=== PATIENT | male | born 1995 | race Caucasian/White ===

== ENCOUNTER 2023-09-18 09:34 | Emergency (ER) | payer MEDICAID, OTHER ==
[~2023-09-18] VITALS: Ht 172.7 cm; Wt 114.9 kg
[2023-09-18 10:11] VITALS: BP 130/77; PULSE 64; RESP 18; TEMP 97.8; O2SAT 99
[2023-09-18] MEDS ORDERED: IBUP-1456 PO (10:39)
== END 2023-09-18 10:42 | disposition home or self-care (01) ==
LOC: ER 09:34
DX: M54.59 Other low back pain (principal); G89.29 Other chronic pain; Z79.899 Other long term (current) drug therapy
CPT/HCPCS: 72100

== ENCOUNTER 2023-10-15 12:54 | Emergency (ER) | payer MEDICAID ==
[~2023-10-15] VITALS: Ht 170.2 cm; Wt 111.0 kg
[~2023-10-15 12:54] MED LIST: IBUP-1456 PO
[2023-10-15 13:28] LABS: Basophils # (auto) 0.1 10 ^3/uL (0-0.2); Basophils % (auto) 0.8 % (0.0-2.0); Eosinophils # (auto) 0.3 10 ^3/uL (0-0.8); Eosinophils % (auto) 3.4 % (0.0-7.0); Hemoglobin 15.4 g/dL (13.5-17.5); Lymphocytes % (auto) 21.8 % (10.0-50.0); Mean Corpuscular Hemoglobin 29.5 pg (28.0-32.0); Mean Corpuscular Hgb Conc. 34.3 g/dL (32.0-36.0); Mean Corpuscular Volume 86.1 fL (80.0-100.0); Monocytes # (auto) 0.7 10 ^3/uL (0-1.3); Neutrophils # (auto) 6.1 10 ^3/uL (1.6-8.6); Nucleated Red Blood Cells % 0.1 %; Red Blood Cells 5.23 10^6/uL (4.5-5.90); Red Cell Distribution Width 13.9 % (11.8-14.3); White Blood Cell 9.2 10^3/uL (4.4-10.8)
[2023-10-15 13:33] LABS: Urine Bacteria None Seen /hpf (None Seen)
[2023-10-15 13:43] LABS: Urine Blood Negative /uL (Negative); Urine Clarity Clear (Clear); Urine Color Yellow (Yellow); Urine Mucus FEW (None Seen); Urine Protein, UAD 2+ (Negative); Urine Specific Gravity 1.025 (1.001-1.035); Urine Urobilinogen Normal (Negative); Urine WBC 1 /hpf (0 - 3); Urine pH 6.5 (5.0-9.0)
[2023-10-15 13:48] LABS: Alanine Aminotransferase 39 U/L (7-40); Alkaline Phosphatase 79 U/L (46-116)
[2023-10-15 13:49] LABS: Albumin 4.1 g/dL (3.2-4.8); Anion Gap 3 (5-15); Aspartate Aminotransferase 21 U/L (13-40); BUN/Creatinine Ratio 13.3 (10.0-20.0); Bilirubin, Total 0.7 mg/dL (0.2-1.0); Blood Urea Nitrogen 13 mg/dL (9-23); Calcium 9.7 mg/dL (8.5-10.1); Carbon Dioxide 30 mmol/L (20-30); Chloride 108 mmol/L (98-107); Glucose 93 mg/dL (74-106); Potassium 4.6 mmol/L (3.5-5.1); Sodium 141 mmol/L (136-145); Total Protein 6.4 g/dL (5.7-8.2)
[2023-10-15 13:56] LABS: Amphetamine Screen, Urine Neg (NEGATIVE)
[2023-10-15 13:57] LABS: Barbiturate Scree,Urine Neg (NEGATIVE); Benzodiazephine Screen, Urine Neg (NEGATIVE); Cannabinoid Screen, Urine Neg (NEGATIVE); Cocaine Screen, Urine Neg (NEGATIVE); Opiate Scree,Urine Neg (NEGATIVE); Phencyclidine Screen, Urine Neg (NEGATIVE)
[2023-10-15 16:47] VITALS: BP 132/74; PULSE 52; RESP 20; TEMP 98.1; O2SAT 96
== END 2023-10-15 16:45 | disposition home or self-care (01) ==
LOC: ER 12:54
DX: R07.89 Other chest pain (principal); Z79.899 Other long term (current) drug therapy
CPT/HCPCS: 36415; 71046; 80053; 80307; 81001; 84443; 84484; 85025; 85379; 93005

== ENCOUNTER 2024-02-05 16:50 | Emergency (ER) | payer MEDICAID ==
[~2024-02-05] VITALS: Ht 170.2 cm; Wt 106.4 kg
[2024-02-05] MEDS: HYDROcodone-ACET 5/325MG TAB PO ONE (18:07)
[2024-02-05 18:08] LABS: Basophils # (auto) 0.1 10 ^3/uL (0-0.2); Basophils % (auto) 0.7 % (0.0-2.0); Eosinophils # (auto) 0.6 10 ^3/uL (0-0.8); Eosinophils % (auto) 4.6 % (0.0-7.0); Hematocrit 48.1 % (41.0-53.0); Hemoglobin 16.6 g/dL (13.5-17.5); Lymphocytes % (auto) 16.3 % (10.0-50.0); Mean Corpuscular Hemoglobin 29.5 pg (28.0-32.0); Mean Corpuscular Hgb Conc. 34.5 g/dL (32.0-36.0); Mean Corpuscular Volume 85.5 fL (80.0-100.0); Monocytes # (auto) 1.1 10 ^3/uL (0-1.3); Monocytes % (auto) 9.1 % (0.0-12.0); Neutrophils # (auto) 8.7 10 ^3/uL (1.6-8.6); Neutrophils % (auto) 69.3 % (37.0-80.0); Nucleated Red Blood Cells % 0.2 %; Platelet Count (auto) 229 10^3/uL (140-450); Red Blood Cells 5.63 10^6/uL (4.5-5.90); Red Cell Distribution Width 13.2 % (11.8-14.3); White Blood Cell 12.6 10^3/uL (4.4-10.8)
[2024-02-05 18:11] VITALS: BP 121/67; PULSE 80; RESP 17; TEMP 97.9; O2SAT 98
[2024-02-05 18:29] LABS: Alanine Aminotransferase 36 U/L (7-40); Albumin 4.6 g/dL (3.2-4.8); Alkaline Phosphatase 95 U/L (46-116); Anion Gap 4 (5-15); Aspartate Aminotransferase 20 U/L (13-40); BUN/Creatinine Ratio 9.4 (10.0-20.0); Blood Urea Nitrogen 10 mg/dL (9-23); Calcium 9.9 mg/dL (8.7-10.4); Carbon Dioxide 29 mmol/L (20-31); Chloride 106 mmol/L (98-107); Glucose 87 mg/dL (74-106); Potassium 4.5 mmol/L (3.5-5.1); Sodium 139 mmol/L (136-145)
[2024-02-05 18:30] LABS: Total Protein 7.6 g/dL (5.7-8.2)
[2024-02-05] MEDS: IOHEXOL 300 MG/ML 100ML BOTTLE IJ ONE (19:06)
[2024-02-05] MEDS ORDERED: IBUP-1455 PO (20:17)
[2024-02-05] MEDS ORDERED: HYDR-4902 PO (20:17)
[2024-02-05] MEDS ORDERED: AUG875T PO (20:17)
[2024-02-05] MEDS: AMOXICILLIN/CLAVUL 875 MG TAB PO ONE (20:56)
== END 2024-02-05 21:00 | disposition home or self-care (01) ==
LOC: ER 16:54
DX: K61.0 Anal abscess (principal)
CPT/HCPCS: 36415; 74177; 80053; 85025; 99285; Q9967